=== PATIENT | male | born 1960 | race African-American/Black ===

== ENCOUNTER 2017-09-23 23:15 | Emergency (ER) | payer BC ==
[~2017-09-23] VITALS: Ht 175.3 cm; Wt 70.3 kg
--- NOTE | 2017-09-23 23:20 | PHYS DOC ---
Adult General Chief Complaint Chief Complaint: CHEST WALL PAIN HPI HPI Patient is a 57 year old -[place] male who presents with right substernal chest pain. He states made worse when he is pushing around this machine at work. He states he's diaphoretic but that's he's constantly sweating was at work. 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 He states he moves from one machine to another wheeze on this machine is when he notices this discomfort. Tonight started around 4 PM and lasted the entire time his work on this machine. He denies any nausea or shortness of breath associated with this. He has a history of hypertension, dyslipidemia and was on metformin until he lost 40 pounds. He states he has stress test about 5 years ago that was normal at that time. He does smoke 2 packs per days done that for the last 40 years. He does have family history of coronary disease in mom at the age of 60. Currently he does not have any chest pain. Review of Systems Review of Systems Constitutional: Denies fever or chills [] Eyes: Denies change in visual acuity, redness, or eye pain [] HENT: Denies nasal congestion or sore throat [] Respiratory: Denies cough or shortness of breath [] Cardiovascular: No additional information not addressed in HPI [] GI: Denies abdominal pain, nausea, vomiting, bloody stools or diarrhea [] : Denies dysuria or hematuria [] Musculoskeletal: Denies back pain or joint pain [] Integument: Denies rash or skin lesions [] Neurologic: Denies headache, focal weakness or sensory changes [] Endocrine: Denies polyuria or polydipsia [] All other systems were reviewed and found to be within normal limits, except as documented in this note. Current Medications Current Medications Current Medications Medications (Trade) Dose Ordered Sig/Michelle Start Time Stop Time Status Last Admin Dose Admin Aspirin (Marlyn Aspirin) 325 mg 1X ONCE 09/23/17 23:45 09/23/17 23:46 DC 09/24/17 00:01 325 MG Allergies Allergies Allergies Coded Allergies Type Severity Reaction Last Updated Verified No Known Drug Allergies 09/23/17 No Physical Exam Physical Exam Constitutional: Well developed, well nourished, no acute distress, non-toxic appearance. [] HENT: Normocephalic, atraumatic, bilateral external ears normal, oropharynx moist, no oral exudates, nose normal. [] Eyes: PERRLA, EOMI, conjunctiva normal, no discharge. [] Neck: Normal range of motion, no tenderness, supple, no stridor. [] Cardiovascular:Heart rate regular rhythm, no murmur [] Lungs & Thorax: Bilateral breath sounds clear to auscultation [] Abdomen: Bowel sounds normal, soft, no tenderness, no masses, no pulsatile masses. [] Skin: Warm, dry, no erythema, no rash. [] Back: No tenderness, no CVA tenderness. [] Extremities: No tenderness, no cyanosis, no clubbing, ROM intact, no edema. [] Neurologic: Alert and oriented X 3, normal motor function, normal sensory function, no focal deficits noted. [] Psychologic: Affect normal, judgement normal, mood normal. [] Current Patient Data Vital Signs Vital Signs Date Time Temp Pulse Resp B/P (MAP) Pulse Ox O2 Delivery O2 Flow Rate FiO2 09/23/17 23:55 94 18 138/80 (99) 94 Room Air 09/23/17 23:21 97.9 97.9 Lab Values Laboratory Tests Test 09/23/17 23:20 White Blood Count 9.4 x10^3/uL (4.0-11.0) Red Blood Count 4.39 x10^6/uL (4.30-5.70) Hemoglobin 14.1 g/dL (13.0-17.5) Hematocrit 41.0 % (39.0-53.0) Mean Corpuscular Volume 93 fL (79-100) Mean Corpuscular Hemoglobin 32 pg (25-35) Mean Corpuscular Hemoglobin Concent 35 g/dL (31-37) Red Cell Distribution Width 13.1 % (11.5-14.5) Platelet Count 272 x10^3/uL (140-400) Neutrophils (%) (Auto) 51 % (31-73) Lymphocytes (%) (Auto) 35 % (24-48) Monocytes (%) (Auto) 11 % (0-9) H Eosinophils (%) (Auto) 2 % (0-3) Basophils (%) (Auto) 1 % (0-3) Neutrophils # (Auto) 4.8 x10^3uL (1.8-7.7) Lymphocytes # (Auto) 3.3 x10^3/uL (1.0-4.8) Monocytes # (Auto) 1.0 x10^3/uL (0.0-1.1) Eosinophils # (Auto) 0.2 x10^3/uL (0.0-0.7) Basophils # (Auto) 0.1 x10^3/uL (0.0-0.2) Prothrombin Time 12.7 SEC (11.7-14.0) Prothrombin Time INR 1.0 (0.8-1.1) Sodium Level 135 mmol/L (136-145) L Potassium Level 4.5 mmol/L (3.5-5.1) Chloride Level 98 mmol/L (98-107) Carbon Dioxide Level 25 mmol/L (21-32) Anion Gap 12 (6-14) Blood Urea Nitrogen 34 mg/dL (8-26) H Creatinine 1.8 mg/dL (0.7-1.3) H Estimated GFR (Cockcroft-Gault) 47.1 Glucose Level 125 mg/dL (70-99) H Calcium Level 9.1 mg/dL (8.5-10.1) Magnesium Level 2.3 mg/dL (1.8-2.4) Total Bilirubin 0.4 mg/dL (0.2-1.0) Direct Bilirubin 0.1 mg/dL (0.0-0.2) Aspartate Amino Transferase (AST) 73 U/L (15-37) H Alanine Aminotransferase (ALT) 56 U/L (16-63) Alkaline Phosphatase 75 U/L (46-116) Creatine Kinase 739 U/L (39-308) H Creatine Kinase MB (Mass) 8.7 ng/mL (0.0-3.6) H Creatine Kinase MB Relative Index 1.2 % (0-4) Troponin I Quantitative < 0.017 ng/mL (0.000-0.055) UK-Mkb-M-Type Natriuretic Peptide 102 pg/mL (0-124) Total Protein 8.6 g/dL (6.4-8.2) H Albumin 4.2 g/dL (3.4-5.0) Lipase 154 U/L (73-393) Thyroid Stimulating Hormone (TSH) 1.654 uIU/mL (0.358-3.74) Laboratory Tests 09/23/17 23:20 Laboratory Tests 09/23/17 23:20 EKG EKG EKG shows sinus rhythm with rate of [address] elevations appreciated , T-wave inversion noted in leads 1, aVL, V5 however there is artifact noted V5 V6, normal axis, LVH noted, QTC 461 ms, as interpreted by me. No old EKGs for comparison. Interpretation Time: 2323 Radiology/Procedures Radiology/Procedures One view chest x-ray did not show any focal salt elevations, bony abnormality's , or pneumothorax, as interpreted by me. Impressions: chest pain Tobacco abuse Hypertension Dyslipidemia Course & Med Decision Making Course & Med Decision Making Pertinent Labs and Imaging studies reviewed. (See chart for details) Creatinines elevated, total CK and CK-MBs elevated, EKG does show abnormalities with T-wave inversions in 1, aVL, V5, patient doesn't want to be hospitalized per my recommendations and will sign out AMA. The risks were explained to him and he states he understands and is signing AGAINST MEDICAL ADVICE this time. Dragon Disclaimer Dragon Disclaimer This electronic medical record was generated, in whole or in part, using a voice recognition dictation system. Departure Departure Impression: Primary Impression: Chest pain Disposition: AGAINST MEDICAL ADVICE Condition: STABLE Referrals: NON,STAFF (PCP) Patient Instructions: Chest Pain (Nonspecific) Additional Instructions: You were seen tonight for your chest pain. Your EKG does have abnormalities that are concerning. Your blood work also shows an elevated muscle enzymes that could be related to you having heart damage. He also have an elevated creatinine which means your kidneys are not functioning is normal as a should be. When that you be put in the hospital and evaluated by cardiology and our hospitalist group. He states he do not want to stay and I've discussed with you the risks that you could or become disabled if you're having a heart attack. He states he willing to accept this risk and signed out AGAINST MEDICAL ADVICE. You will need to follow-up with cardiology as an outpatient and primary care. Return back to ER if he changes my mind, if your chest pain gets worse, you have uncontrolled nausea vomiting, weakness, or other concerns. You should take a baby aspirin "81 mg" daily. CHINEDU SHIELDS MD Sep 23, 2017 23:20
[2017-09-23 23:45] LABS: BASO # 0.1 x10^3/uL (0.0-0.2); BASO % 1 % (0-3); EOS % 2 % (0-3); HEMOGLOBIN 14.1 g/dL (13.0-17.5); LYMPH # 3.3 x10^3/uL (1.0-4.8); LYMPH % 35 % (24-48); MEAN CORPUSCULAR HEMOGLOBIN 32 pg (25-35); MEAN CORPUSCULAR HGB CONC 35 g/dL (31-37); MEAN CORPUSCULAR VOLUME 93 fL (79-100); MONO % 11 % (0-9); NEUT % 51 % (31-73); PLATELET COUNT 272 x10^3/uL (140-400); RED BLOOD COUNT 4.39 x10^6/uL (4.30-5.70); RED CELL DISTRIBUTION WIDTH 13.1 % (11.5-14.5); WHITE BLOOD COUNT 9.4 x10^3/uL (4.0-11.0)
[2017-09-23] MEDS ORDERED: ASPIRIN 325 MG TABLET PO ONE (23:45)
[2017-09-23 23:54] LABS: CALCIUM 9.1 mg/dL (8.5-10.1); CREATININE 1.8 mg/dL (0.7-1.3); GFR 47.1; PROTHROMBIN TIME PATIENT 12.7 SEC (11.7-14.0)
[2017-09-23 23:55] VITALS: BP 138/80
[2017-09-23 23:57] LABS: POTASSIUM 4.5 mmol/L (3.5-5.1)
[2017-09-24] LABS: ALBUMIN 4.2 g/dL (3.4-5.0); DIRECT BILIRUBIN 0.1 mg/dL (0.0-0.2); MAGNESIUM 2.3 mg/dL (1.8-2.4); TOTAL BILIRUBIN 0.4 mg/dL (0.2-1.0); TOTAL PROTEIN 8.6 g/dL (6.4-8.2)
[2017-09-24 00:10] LABS: CKMB MASS 8.7 ng/mL (0.0-3.6)
--- NOTE | 2017-09-24 06:24 | EKG ---
[facility] [address] [place] [id number] Test Date: 2017-09-23 Test Time: 23:24:21 Pat Name: LETTY CHAMPAGNE Department: Room: Gender: M Stock Taker: : 1960 Requested By: CHINEDU SHIELDS Order Number: [id number] Reading MD: Measurements Intervals [place] Rate: 87 P: 38 MO: 164 QRS: 66 QRSD: 98 T: 153 QT: 378 QTc: 461 Interpretive Statements SINUS RHYTHM LEFT ATRIAL ABNORMALITY LVH WITH REPOLARIZATION ABNORMALITY ABNORMAL ECG RI6.01 No previous ECG available for comparison
--- NOTE | 2017-09-24 07:30 | RAD ---
Portable chest, 09/23/2017: History: Chest pain The heart size and pulmonary vascularity are normal. No pulmonary infiltrates are seen. There is no evidence of pleural fluid. IMPRESSION: No acute cardiopulmonary abnormality is detected.
== END 2017-09-24 00:36 | disposition left against medical advice (07) ==
LOC: ER 23:15
DX: R07.2 Precordial pain (principal); I10 Essential (primary) hypertension; E78.5 Hyperlipidemia, unspecified
CPT/HCPCS: 36415; 71010; 80048; 80076; 82553; 83690; 83735; 83880; 84443; 84484; 85025; 85610; 93005; 99285